=== PATIENT | male | born 1980 | race Caucasian/White ===

== ENCOUNTER 2025-01-02 17:22 | Emergency (ER) | payer OTHER, BC, SELFPAY ==
--- OUTSIDE RECORDS SUMMARY | 2025-01-02 17:24 | XMS_ITS | Clinical Summary ---
Author Organization [facility] Address [address] [place] [id number] Care Team Providers Care Communications Strategist Name Role Phone Fernando Johnson MD Primary Care Provider [phone]- [phone] Allergies No known active allergies Medications No known medications Active Problems Problem Noted Date Diagnosed Date Family history of colonic polyps 05/04/2019 Overview (05/04/2019): Brother Troy had an adenomatous polyp at age 41. Encounters Date Type Department Care Team Description 01/02/2025 Nurse Triage [facility] Centralized Nurse Triage Fernando Johnson MD Head Injury 12/12/2024 Telephone [facility] [address] [place], [place] [id number] Fernando Johnson MD Form from Last 3 Months Immunizations Immunization Administration Dates Next Due COVID-19 VACCINE SPIKEVAX (M ODERNA 50MCG/0.5ML) 12YO+ PFS 04/17/2023 DTaP 08/14/1986, 3,05/28/1982,02/21,01/03/1982 Hepatitis B, Unspecified 11/08/1999,05/31/1999,1 07/03/1998 Influenza, IIV4 05/08/2022,03/20/2021,05/11/2020 Influenza, IIV4 (=>6mos) MDV 04/29/2018,04/10/20 16 Influenza,CCIIV4 PRESERV FREE 04/17/2023 MMR 1993,02/20/1983 Meningococcal Vaccine (Menomune) 12/30/1999 Polio (Oral Polio Vaccine,Unspecified) 0 08/14/1986,05/26/1983,05/28/1982,02/21,01/03/1982 Td (Age >=7 Years) 11/03/1996 Tdap 08/18/2023,10/23/2011,11/05/2006 Family History Medical History Relation Name Comments Depression Brother 1 Codey Heart Disease Brother 1 Codey Brother with a Calcium score in the 100% range. Colon polyps Brother 2 Troy Adenomatous rl yp Depression Father Liver disease Sister s/p cholecyste ctomy Relation Name Status Comments Brother 1 Codey Alive Brother 2 Troy Alive Father Alive Mother Alive Sister Social History Tobacco Use Types Packs/Day Years Used Date Smoking Tobacco: Never Smokeless Tobacco: Never Tobacco Cessation:Counseling Given: Yes Alcohol Use Standard Drinks/Week Comments Yes 2 (1 standard drink = 0.6 oz pur e alcohol) Ocas. wine or beer PHQ-2 Answer Date Recorded PHQ-2 TOTAL SCORE 0 08/18/2023 Social Connections Answer Date Recorded Frequency of Communication with Friends and Fami ly Not on file 08/18/2023 Alcohol Use Answer Date Recorded How often do you have a drink containing alcohol ? 3 08/18/2023 How many drinks containing a lcohol do you have on a typical day when you are drinking? 0 08/18/2023 How often do you have five or more drinks on one occasion? 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 Not on file Not on file Not on file Obstetrics History Last Filed Vital Signs Vital Sign Reading Time Taken Comments Blood Pressure 115/74 08/18/2023 2:20 PM RING STRIKER Pulse 53 08/18/2023 2:20 PM [employer]ING STR[employer] Temperature 37.1 C (98.7 F) 09/17/2018 1:33 PM CDT Respiratory Rate - - Oxygen Saturation 100% 08/18/2023 2:20 PM RING STRIKER Inhaled Oxygen Concentration - - Weight 74.9 kg (165 lb 3.2 oz) 08/18/2023 2:20 P M [employer]ING [employer]ER Height 176.8 cm (5' 9.61) 08/18/2023 2:20 PM CS T Body Mass Index 23.97 08/18/2023 2:20 PM RING STRIKER Plan of Treatment Health Maintenance Due Date Last Done Comments HIV for age 15-65 1996 Hepatitis C screening for age 18-79 11/20/1999 COVID-19 vaccine series (2023- season) 2024 04/17/2023, 05/14/2022, 05/26/2021, Additional history exists BMI (ht and wt on same day) for age 18+ 08/18/2024 08/18/2023, 03/20/2021, 05/04/2019, Additional history exists Depression screening for age 12+ 08/18/2024 08/18/2023, 03/20/2021, 05/04/2019, Additional history exists Influenza Vaccine (#1) 2025 , 05/08/2022, 03/20/2021, Additional history exists Colonoscopy through age 75 05/17/202605/17, 05/17/2021, 05/17/2021 Lipids for age 35-44 08/18/2028 08/18/2023, 03/20/2021, 03/19/2018 Tetanus booster 08/18/2033 08/18/2023, 04/2 11/2011, 11/05/2006, Additional history exists Hepatitis B series for 19+ Completed 11/07, 05/31/1999, 05/03/1999 Pneumococcal series for age 6-49 Aged Out No longer eligible based on patient's age to complete this topic Procedures Procedure Name Priority Date/Time Associated Diagnosis Comments LIPID PANEL W REFLEX MEASURED LDL Routine 08/18/2023 3:23 PM RING STRIKER Lipid screening COLONOSCOPY SCREENING Routine 05/17/2021 8:48 AM RING STRIKER Screening for colon cancer from Last 3 Months or Most Recently Relevant to Health Maintenance Results * (ABNORMAL) LIPID PANEL W REFLEX MEASURED LDL (08/18/2023 3:23 PM RING STRIKER) CHOLESTEROL,TOTAL 231(H) 100 - 199 mg/dL 08/18/2023 9:52 PM RING STRIKER [facility] Comment: Cholesterol, Total Reference Ranges Desirable <200 mg/dL Borderline 200-239 mg/dL High >=240 mg/dL TRIGLYCERIDES 86 <150 mg/dL 08/18/2023 9:52 PM RING STRIKER [facility] HDL CHOLESTEROL 60 >40 mg/dL 9:52 PM RING STRIKER [facility] NON-HDL CHOLESTEROL 171(H) <145 mg/dl 08/18/2023 9:52 PM RING STRIKER [facility] CHOL/HDL RATIO 3.85 <4.50 08/18/2023 9:52 PM RING STRIKER [facility] LDL CHOLESTEROL 154(H) <=130 mg/dL 08/18/2023 9:52 PM RING STRIKER [facility] VLDL CHOLESTEROL 17 <=30 mg/dL 08/18/2023 9:52 PM RING STRIKER [facility] PROVIDER ORDERED STATUS RANDOM 08/18/2023 9:52 PM RING STRIKER [facility] Blood BLOOD SPECIMEN / Unknown Venipuncture / Unknown 08/18/2023 3:23 PM RING STRIKER 08/18/2023 3:24 PM RING STRIKER us Fernando Johnson MD CHEMISTRY Final Resu lt [facility] [address] [place] [address], [place] * COLONOSCOPY (05/17/2021 8:50 AM RING STRIKER) 05/17/2021 8:50 AM RING STRIKER Narrative Transcriptions Audie Clemons MD - 05/17/2021 9:40 AM CST Patient Name: Naseem Ramirez Procedure Date: 05/17/2021 Gender: Male Date of : 1980 Admit Type: Outpatient Procedure: Colonoscopy Proceduralist: Audie Clemons MD , Emi Starkey RN(Nurse) Referring MD: Fernando Johnson Indications/Pre-Op Diagnosis: Colon cancer screening in patient with 1st-degree relative having advanced adenomaof the colon before age 60, This is thepatient's first colonoscopy Medications: Fentanyl 100 micrograms IV, Midazolam 2 mgIV, The level of sedation administered wasmoderate Procedure Description: The patient had risks, benefits and alternatives explained to andgave informed consent. The patient had a stable cardiopulmonary status and judged an adequate candidate for conscious sedation. The [id number] was passed through the anus and advanced tothe cecum, identified by appendiceal orifice and ileocecal valve. The colonoscopy was performed without difficulty. The patient toleratedthe procedure well. The quality of the bowel preparation was good. The ileocecal valve, appendiceal orifice, and rectum were photographed. Complications: No immediate complications. Estimated Blood Loss & Specimen: Estimated blood loss: none. Specimen collected - None Findings: The perianal and digital rectal examinations were normal. The entire examined colon appeared normal on direct and retroflexion views. Impressions/Post-Op Diagnosis: - The entire examined colon is normal on direct and retroflexionviews. - No specimens collected. Recommendation: - Patient has a contact number available for emergencies. The signsand symptoms of potential delayed complications were discussed with the patient. Return to normal activities tomorrow. Written discharge instructions were provided to the patient. - Resume previous diet. - Continue present medications. - Repeat colonoscopy in 5 years for screening purposes. Moderate Sedation: Moderate (conscious) sedation was administered by the endoscopy nurse and supervised by the endoscopist. The following parameters were monitored: oxygen saturation, heart rate, respiratory rate, blood pressure, adequacy of pulmonary ventilation and reponse to care. Please refer to the patient's medical record flowsheets and nursing notes for moderate sedation details. Total physician intraservice time was 15 minutes. Audie Clemons MD 05/17/2021 9:40:49 AM This report has been signed electronically. Note Initiated On: 05/17/2021 8:50 AM Procedure Code(s): --- Professional --- 79963, Colonoscopy, flexible; diagnostic, including collection of specimen(s) bybrushing or washing, when performed (separateprocedure) Diagnosis Code(s): --- Professional --- Z83.71, Family history of colonic polyps CPT copyright 2020 [employer]. All rights reserved. The codes documented in this report are preliminary and upon director of admissions reviewmay be revised to meet current compliance requirements. Scope In: 9:19:14 AM Scope Withdrawal Time 0 hours 7 minutes 30 seconds Scope Out: 9:34:10 AM Audie Clemons MD PROCEDURE ORD Final Res ult from Last 3 Months or Most Recently Relevant to Health Maintenance Insurance [facility] Care Teams Communications Strategist Relationship Specialty Start Date End Date Fernando Jonhson MD [address] [place] [address] PCP - General Family Practice 03/20/21
[2025-01-02 17:26] VITALS: BP 133/82; PULSE 66; RESP 16; TEMP 36.9; O2SAT 98; BMI 23.4
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
[2025-01-02] MEDS: ACETAMINOPHEN 500 MG TABLET 1000 MG PO (20:38)
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
== END 2025-01-02 21:53 | disposition home or self-care (01) ==
PROVIDERS: Emergency Provider Family Medicine; PCP Family Medicine
DX: S09.90XA Unspecified injury of head, initial encounter (principal); V43.52XA Car driver injured in collision with other type car in traffic accident, initial encounter
CPT/HCPCS: 70450; 72040; 99284; A9270